=== PATIENT | male | born 1955 | race Caucasian/White ===

== ENCOUNTER 2016-08-28 14:35 | Inpatient (IN) | payer OTHER ==
[~2016-08-28] VITALS: Ht 167.6 cm; Wt 91.5 kg
[2016-08-28 14:37] VITALS: BP 166/97; PULSE 83; RESP 18; O2SAT 97
--- NOTE | 2016-08-28 14:49 | ED.REPORT ---
HPI-General Illness Date of Service Aug 28, 2016 ED Provider: Micah Cantu PAC History of Present Illness: 61yo male sent to ED after labs drawn at PCP showed new onset renal failure (Creatnine 4.0; BUN 40). Pt. reports ongoing nausea for several weeks. Of note, he was on a lengthy hike along [facility] and estimates he hiked 200 miles July 28 - August 15. He denies any fever, muscle cramps, CP, abdominal pain, SOB. Urine normal color, more frequant voiding lately. Nursing Notes Stated Complaint: KIDNEY/SENT BY Chief Complaint: General Complaint Nursing Notes Reviewed: Yes Allergies: Coded Allergies: Penicillins (Verified Allergy, Intermediate, RASH, 08/28/16) Uncoded Allergies: PENICILLIN (Allergy, Intermediate, rash, 08/28/16) General Time Seen by MD: 14:47 Chief Complaint Other abnormal renal function at PCP. Hx Obtained From: Patient Arrived By: Walk-in Onset Occurred: 2 days ago Severity: Current: No pain currently Severity: Maximum: No pain Recent Healthcare: Recent doctor visit Similar Sx Previous: No Past Medical History Past Medical History denies Smoking History Never Smoker Social History Alcohol Use: Denies alcohol use Drug Use: Denies drug use Ambulatory Status Independent Review of Systems Full Review of Systems Constitutional: Denies: Chills, Fever Respiratory: Denies: Shortness of breath Cardiovascular: Denies: Chest pain GI: Reports: Nausea, Denies: Abdominal pain, Hematemesis, Hematochezia, Vomiting Male: Reports Urinary frequency, Denies Dysuria, Denies Flank pain, Denies Hematuria Complete sys rev & neg: except as marked. Physical Exam Vital Signs Vital Signs Date Time Temp Pulse Resp B/P Pulse Ox O2 Delivery O2 Flow Rate FiO2 08/28/16 16:37 36.8 68 20 146/86 99 Room Air 08/28/16 14:37 36.9 83 18 166/97 97 Room Air Initial VS: Reviewed General/Constitutional: Awake, Alert, No acute distress, Well appearing, Well hydrated, Not toxic appearing Neck: Supple, Full range of motion, No adenopathy Respiratory / Chest: Atraumatic, Breath sounds NL, Breath sounds = bilat, No respiratory distress Cardiovascular: Heart rate NL, Regular rhythm, Heart sounds NL Abdomen: Soft, Non-tender, No guarding, No rebound Interpretation & Diagnostics Lab Results Interpretation Result Diagram: 08/28/16 1510 08/28/16 1510 Test 08/28/16 15:10 08/28/16 16:47 White Blood Count 5.6th/mm3 (3.8-10.1) Red Blood Count 3.90mil/mm3 (4.40-5.80) Hemoglobin 11.9g/dL (13.8-17.2) Hematocrit 35.9% (41.0-50.0) Mean Corpuscular Volume 92.1fL (81-100) Mean Corpuscular Hemoglobin 30.5pg (27.0-35.0) Mean Corpuscular Hemoglobin Concent 33.1% (32.0-37.0) Red Cell Distribution Width 12.5% (12.3-15.4) Platelet Count 201bil/L (150-400) Neutrophils (%) (Auto) 63.0% (40-74) Lymphocytes (%) (Auto) 25.5% (14-46) Monocytes (%) (Auto) 7.8% (4-12) Eosinophils (%) (Auto) 3.0% (0-5) Basophils (%) (Auto) 0.5% (0-3) Hold Blue Top Tube Received (Received) Hold Urine Received (Received) Sodium Level 141mEq/L (134-144) Potassium Level 4.1mEq/L (3.5-5.2) Chloride Level 101mEq/L (97-108) Carbon Dioxide Level 26mmol/L (18-29) Blood Urea Nitrogen 29mg/dL (6-24) Creatinine 3.29mg/dL (0.76-1.27) Estimat Glomerular Filtration Rate 21mL/min (>59) Glucose Level 89mg/dL (60-99) Calcium Level 9.8mg/dL (8.5-10.1) Total Bilirubin 0.7mg/dL (0.0-1.2) Aspartate Amino Transf (AST/SGOT) 15U/L (0-50) Alanine Aminotransferase (ALT/SGPT) 12U/L (0-44) Alkaline Phosphatase 62U/L (25-160) Total Creatine Kinase 146U/L (21-232) Total Protein 7.0g/dL (6.4-8.4) Albumin 3.9g/dL (3.4-5.0) Lipase 80U/L (13-60) Hold Zhao Top Tube Received (Received) Urine Color Yellow (YELLOW) Urine Appearance Clear (CLEAR,HAZY) Urine pH 6.5 (5.0-8.0) Urine Specific [place] <1.005 (1.003-1.035) Urine Protein Negativemg/dL (NEG,TRACE) Urine Glucose (UA) Negativemg/dL (NEGATIVE) Urine Ketones Negativemg/dL (NEGATIVE) Urine Occult Blood Negative (NEGATIVE) Urine Nitrite Negative (NEGATIVE) Urine Bilirubin Negative (NEGATIVE) Urine Urobilinogen Normalmg/dL (NORMAL) Urine Leukocyte Esterase Negative (NEGATIVE) Urine RBC 0-2/hpf (0-2) Urine WBC 0-5/hpf (0-5) Urine Epithelial Cells Few/hpf (NONE-MOD) Urine Crystals None seen (NONE SEEN) Urine Bacteria Few/hpf (NONE-FEW) Urine Hyaline Casts None/lpf (NONE) Urine Granular Casts None seen (NONE SEEN) Urine Waxy Casts None seen (NONE SEEN) Urine Red Blood Cell Casts None seen (NONE SEEN) Urine White Blood Cell Casts None seen (NONE SEEN) Urine Mucus None seen (None Seen) Urine Trichomonas None seen (NONE SEEN) Urine Yeast None (NONE SEEN) Urinalysis Comment None Urine Culture Reflexed Not indicated Re-Eval/Medical Decision Med Decision/Clinical Course Case discussed with Dr. Bridges who advises nephrology consult and admission. Dr. Ritter, software solutions architect humanities and languages professor contacted and is happy to consult. Dr. Vazquez, hospitalist, accepted to his service. Counseled Regarding: Diagnosis, Lab results, Need for admission Discharge & Departure Primary Impression: Acute renal failure Acute renal failure type: unspecified Qualified Code: N17.9 - Acute kidney failure, unspecified Disposition: ADMITTED TO HOSPITAL Referrals: Gertrude Crews PA-C (PCP) EDSupervising Provider for APC: Cb Bridges MD, Christopher R PAC Aug 28, 2016 14:49
[2016-08-28] MEDS ORDERED: Ondansetron 2 mg/mL 2 mL Inj IVPUSH ONE (15:00)
[2016-08-28] MEDS: 0.9% Sodium Chloride 1,000 ML IV SCH ×2 (15:26→21:35)
[2016-08-28 15:31] LABS: BASOPHILS % (AUTO) 0.5 % (0-3); MONOCYTES % (AUTO) 7.8 % (4-12); Mean Corpuscular Hemoglobin 30.5 pg (27.0-35.0); Mean Corpuscular Volume 92.1 fL (81-100); Platelet Count 201 bil/L (150-400)
[2016-08-28 16:37] VITALS: BP 146/86; PULSE 68; RESP 20; O2SAT 99
[2016-08-28 17:00] LABS: APPEARANCE,URINE CLEAR (CLEAR,HAZY); COLOR,URINE YELLOW (YELLOW); OCCULT BLOOD,URINE NEGATIVE (NEGATIVE); PH,URINE 6.5 (5.0-8.0); UROBILINOGEN,URINE NORMAL (NORMAL)
[2016-08-28] MEDS ORDERED: 0.9% Sodium Chloride 1,000 ML IV SCH (18:00)
[2016-08-28] MEDS ORDERED: Ondansetron 2 mg/mL 2 mL Inj IVPUSH PRN (18:00)
[2016-08-28] MEDS ORDERED: Alum-Mag Hydrox-Simeth 30 mL Suspension PO PRN (18:00)
[2016-08-28] MEDS ORDERED: Polyethylene Glycol (PEG) 17 Gm Powder PO PRN (18:00)
--- NOTE | 2016-08-28 18:52 | PCM.HPMED ---
Subjective Date of Service Aug 28, 2016 Primary Provider: Admitting Physician: Primary Care Physician: Gertrude Crews PA-C Attending Physician: Chief Complaint: Nausea History of Present Illness: Patient is a 61-year-old male presenting on referral from cured meats supervisor's office after he was seen earlier today for elevated renal function. He had been seen 2 days prior for persistent nausea in addition to hip pain by primary care physician who had noted significantly elevated renal functions with routine lab work to workup nausea of unknown origin, which prompted referral to Dr. Ferrell. A few weeks prior patient and had initiated a high of the [employer] [place]. Patient notes only a couple days in began to experience worsening nausea, which caused him to eat and drink less than he would have liked, in addition to a progressive hip pain. He ended up checking on for 19 days before finally quitting the attempt and flying home to see the doctor the next day, which was 2 days prior. He had blood work drawn then which eventually noted to renal failure prompting his ventral presentation to emergency department. Currently he notes still experiencing is small amount of nausea but overall greatly improved. He has no significant medical history, and no other acute complaints at this time he had no time experienced chest pain shortness of breath. Denies any recent fever chills or sweats. States his stools may have been slightly loose but no copious diarrhea. He does note he does not tolerate heat well and temperature [place] in the beginning of trail was very high, he wonders what role that may have played. Otherwise, he is already feeling somewhat improved related to both nausea and hip pain. Review of Systems: A 10 point review of systems was conducted and entirely negative excepting pertinent positives and negatives included above in history of present illness Allergies Coded Allergies: Penicillins (Verified Allergy, Intermediate, RASH, 08/28/16) Uncoded Allergies: PENICILLIN (Allergy, Intermediate, rash, 08/28/16) Home Medications None PMH No significant past medical history Surgical History Appendectomy in Ankle repair following fracture Family History Mother has hypertension, father has diabetes, no history of renal disease. Social History Hx Alcohol Use: No Hx Substance Use: No Hx Tobacco Use: No Living Arrangement: with Family Exam Vital Signs Vital Sign - Last Date Time Temp Pulse Resp B/P Pulse Ox O2 Delivery O2 Flow Rate FiO2 08/28/16 16:37 36.8 68 20 146/86 99 Room Air General: Alert, Oriented X3, Cooperative, No Acute Distress Eyes: PERRLA, EOMI Mouth: Mucous Membr Moist/[place] Chest & Lungs: Clear to auscultation & percussion Cardiovascular: Regular Rate/Rhythm, No Murmurs/Rubs/Gallops Abdomen: Non-tender, Non-distended Extremities: No cyanosis/clubbing/edma bilat Neurological: Grossly Neurologically Intact Lab and Diagnostics Result Diagram: 08/28/16 1510 08/28/16 1510 Assessment & Plan 61-year-old male who is in the p.m. past medical history presenting on referral from nephrologists office following markedly elevated renal function tests. 1. Acute renal failure - Etiology is not clear however patient's continued hiking even in the face of nausea, and dehydration, may have contributed to his decompensation. Possibilities include rhabdomyolysis, worsened got an infectious process, leading to acute tubular necrosis. Condition does appear to be improving based on declining creatinine values over the past 2 days, and based on patient's overall stable medical condition - We will avoid nephrotoxic agents the patient denies use of any recent past, aside from some nutritional supplements most notably sparely 9 coenzyme Q which may have contributed in part to patient's renal compromise especially in the setting of dehydration. - We will continue intravenous fluids 100 mL per hour - Continue to monitor renal function closely - Nephrology has been consulted and appreciate their recommendations. - Renal ultrasound for further evaluation of anatomy is ordered and pending. 2. Right hip pain - Given location on lateral aspect of hip, pain appears most consistent with bursitis likely due to excessive use during high - Patient is currently well controlled, medications available for exacerbation 3. Nausea - This is also greatly improved from previous week - She is tolerating by mouth food and fluids well and when necessary's are also available should nausea worsen. Given severity of renal disease and also new diagnosis. He will be here greater than 2 nights and thus intermittent inpatient admission. Pain Evaluation: Adequate Pain Control Resuscitation Status: CPR: Attempt Resuscitation Time spent 50 minutes Ming Aiken DO Aug 28, 2016 18:52
--- NOTE | 2016-08-28 19:49 | DRSVH ---
PROCEDURE: US RENAL SONOGRAM INDICATIONS: renal failure TECHNIQUE: Real-time scanning was performed of the kidneys and bladder, with image documentation. COMPARISON: None. FINDINGS: Kidneys: Kidneys are normal in size. Right kidney measures 12.5 cm long; left kidney measures 13.3 cm long. Right renal cortical thickness is 2.3 cm; left renal cortical thickness is 2.1 cm. Renal c ortical echotexture is normal. No hydronephrosis or nephrolithiasis. No suspicious solid mass lesio ns. Bladder: Pre-void bladder volume is 118 mL. Post-void residual is 152 mL. Pre-void images demonstr ate no intraluminal masses or stones. On pre-void images, neither ureteral jets are noted with color Doppler interrogation. (Of note, ureteral jets may not be detectable in up to 25% of cases due to i nsufficient differences in specific gravity between ureteral and bladder urine). Miscellaneous: No free pelvic fluid. IMPRESSION: The patient was unable to void on request, and the "postvoid" bladder volume reflects in creased accumulation of urine within the bladder lumen over the course of the study. No hydronephros is or nephrolithiasis is found. Dictated by: Julian Patino M.D. on 08/28/2016 at 19:46 Approved by: Julian Patino M.D. on 08/28/2016 at 19:47
[2016-08-28 20:44] VITALS: BP 165/94; PULSE 69; RESP 16; O2SAT 97
[2016-08-28 22:57] VITALS: BP 148/94; PULSE 69; RESP 16; O2SAT 97
[2016-08-29 04:04] VITALS: BP 159/97; PULSE 62; RESP 16; O2SAT 97
--- NOTE | 2016-08-29 04:15 | NUR ---
Admit note Pt. arrived to the floor approx. 2200, A&Ox4, calm, pleasant and cooperative to staff and care, able to transfer to bed, independent with ambulation, steady gait, oriented to rm and call light, denies nausea and stated of 1/10 right hip pain, vitals stable, afebrile, hourly checks, call light in reach at all times, slept most of the shift, will continue to monitor.
[2016-08-29 06:19] LABS: BASOPHILS % (AUTO) 0.6 % (0-3); EOSINOPHILS % (AUTO) 5.4 % (0-5); MONOCYTES % (AUTO) 7.9 % (4-12); Mean Corpuscular Hemoglobin 30.6 pg (27.0-35.0); Mean Corpuscular Volume 93.2 fL (81-100); NEUTROPHILS % (AUTO) 55.3 % (40-74); Platelet Count 176 bil/L (150-400)
--- NOTE | 2016-08-29 09:21 | NUR ---
Social Work-screening: Data:EMR Reviewed. PT is a 61 y/o male who was admitted on 08/28/16 for new onset renal failure per H&P. Pt's insurance is [employer] and PCP is FOSTER Fuchs. EMR Reviewed. SW met with pt at bedside, SW role explained. Pt is alert and oriented x3. Pt resides at home with his on [address] where he remains independent with ADLs. Pt drives and does not use any DME. Pt has no HH Or SNF history. Pt confirms he has completed DPOA/ advanced directive paperwork, SW encouraged a copy to be brought into the hospital. Per RN notes, pt has been up independent in his room. Pt's to provide transport home at discharge. SW provided phone number and plan on white board in room. No anticipated discharge needs. SW will continue to follow if needs arise. Assessment:Pt who is independent at baseline. Plan:Pt to discharge home when medically stable via POV. No anticipated discharge needs. SW will continue to follow if needs arise. Chaya Donato MSW
[2016-08-29 13:57] VITALS: BP 158/96; PULSE 71; RESP 20; O2SAT 97
--- NOTE | 2016-08-29 14:50 | CONS ---
[address] [address] CONSULTATION REPORT PATIENT: NI CANALES : 1955 MR#: [id number] ADMIT: 08/28/2016 JOB ID: [id number] DATE OF SERVICE: 08/29/2016 REQUESTING PHYSICIAN: Dr. Ming Aiken. REASON FOR CONSULTATION: Management of abnormal kidney function. CHIEF COMPLAINT: Abnormal kidney function and nausea. PRESENT ILLNESS: This is a very pleasant, 61-year-old, male without significant past medical history, who presented to the hospital with a complaint of persistent nausea and abnormal kidney function. The patient was hiking along the [employer] [place] a month ago. The hike started on July 28 and ended on August 14. He did a total hike of 200 miles. The location started in [place], [place]. He finished the hike in [place], [place]. The trail started near [facility]. On day two of the hike, he started having right hip pain. Of note, he was carrying 50-pound backpack for the whole time. He was taking ibuprofen, total of three doses, during the hike. The patient reported that day four, he started having nausea and loss of appetite. He did not have any vomiting or diarrhea at that time. He stated that he was sweating a lot. He drank filtered water. Water came from river, tap water and tank. He mentioned that at one point, he drank directly from the tap water in [facility]. That was the only source of water that his daughter did not have. The whole trip he was accompanied by his daughter and his granddaughter, who does not have any symptoms like his. Patient was pushing himself up until August 14 when he decided to fly back home. At home, he started having fever, chills, watery diarrhea. Those symptoms lasted for a few days and went away. However, he remains having persistent nausea and not feeling like himself 100%. He decided to see his practitioner. He had blood work done. Showed a creatinine of 4.5 on August 25, 2016. Two years ago, his serum creatinine was 0.99. He denies history of skin rash. The patient is pretty healthy individual. He has no history of hypertension, heart failure. No stroke, no dyslipidemia, no diabetes. He has no history of vasculitis or kidney stones. Given the elevation of serum creatinine, he was instructed to go to the hospital for further investigation. The initial blood work did not show any leukocytosis. He has mild anemia, hemoglobin of 11.9, eosinophils were 3%. Initial BMP showed sodium 141, potassium of 4.1, chloride 101, bicarb 26, BUN of 29, creatinine of 3.29. Lipase of 80. He has normal liver function test. Urine was benign, did not show any active sediment. The patient received IV fluid overnight. His serum creatinine came down to 3.12. His appetite is fair. He has some nausea but he has no vomiting, no diarrhea, no abdominal pain. No chest pain. No cough. No palpitation, no headaches. No sinus pressure. No skin rash. No history of insect bite. REVIEW OF SYSTEMS: A 14-point review of systems was performed. ALLERGIES: PENICILLIN. MEDICATIONS: None. PAST MEDICAL HISTORY: None. SURGICAL HISTORY: Status post appendectomy, status post ankle fracture status post repair. FAMILY HISTORY: No significant kidney disease in the family. SOCIAL HISTORY: Denies current use of alcohol, tobacco, or illicit drugs. PHYSICAL EXAMINATION: Vitals: Temperature 36.8, pulse 62, respiratory 16, blood pressure 159/97. O2 sat 98% on room air. General appearance: Awake, alert, oriented x3, in no acute distress. HEENT: No pallor, no jaundice. No JVD. No lymphadenopathy. No thyroid enlargement. Atraumatic. Moist mucous membranes. PERRLA. Heart: Regular rhythm. Normal S1, S2. No murmurs, rubs, or gallops. Lungs: Clear to auscultation bilaterally. No wheezing. No rhonchi. Abdomen: Soft, nontender, nondistended. No hepatosplenomegaly. Extremities: No edema, cyanosis or clubbing of fingers. Skin: No rashes. No excoriation. LABORATORIES: Sodium 146, potassium 5.0, chloride 107, bicarb 26, BUN 26, creatinine 3.12. WBC 5.2, hemoglobin 11.3, eosinophils 5.4%. Urine specific gravity less than 1.005, pH 6.5. RBCs 0-2, WBCs 0-5. ASSESSMENT: Acute kidney injury. The etiology is unclear. Patient was hiking along the [employer] [place] between July 28 and August 14. On day four, he started having nausea and lost his appetite. Moreover, he was taking ibuprofen for the hip pain. I believe that he likely had a component of dehydration. Ibuprofen may have contributed to the kidney injury. Since he was at the [facility] border, I was wondering if he might catch atypical infection; for example, [place] spotted fever, parasitic infection, viral infection. Rhabdomyolysis was possible well since he had an extensive hike. All of those possibilities may lead to acute tubular necrosis. When patient returned back home, he started urinating more. It seems to me that he is now in recovery phase of acute tubular necrosis. At this point, I would like to continue only supportive treatment, continue IV fluid. Avoid nephrotoxins. Avoid NSAIDs. I would like to check other labs including ESR, CRP, [place] spotted fever titer, HIV, stool ova/parasite and stool PCR Thank you for allowing me to participate in the care of your patient. We will monitor along with you. SHELBY
--- NOTE | 2016-08-29 15:01 | PCM.PNMED ---
Subjective Date of Service Aug 29, 2016 Subjective Patient is feeling well overnight. He has a good appetite this morning. Urinating frequently. Denies any fever or chills. His experienced no nausea or vomiting since admission. Few complaints at this time. It is not causing significant discomfort, required no pain medication. Exam Vital Signs Vital Sign - Last Date Time Temp Pulse Resp B/P Pulse Ox O2 Delivery O2 Flow Rate FiO2 08/29/16 13:57 36.6 71 20 158/96 97 Room Air Intake and Output 08/28/16 08/28/16 08/29/16 Cumulative From/Thru 15:00 23:00 07:00 08/28/16 14:37 - 08/29/16 06:01 Intake Total 1000 ml 1553 ml 2553 ml Output Total 1250 ml 1250 ml Balance 1000 ml 303 ml 1303 ml Intake Oral 700 ml 700 ml IV Total 1000 ml 853 ml 1853 ml Output Urine Total 1250 ml 1250 ml Exam General: Alert, Oriented X3, Cooperative, No Acute Distress Eyes: PERRLA, EOMI Mouth: Mucous Membranes Moist/[employer] Chest & Lungs: Clear to auscultation & percussion Cardiovascular: Regular Rate/Rhythm, No Murmurs/Rubs/Gallops Abdomen: Non-tender, Non-distended Extremities: No cyanosis/clubbing/edema bilat Neurological: Grossly Neurologically Intact IVs and Medications Medications Reviewed: Medications were reviewed in detail Lab and Diagnostics Result Diagram: 08/29/16 0550 08/29/16 0550 Assessment & Plan 61-year-old male who is in the p.m. past medical history presenting on referral from nephrologists office following markedly elevated renal function tests. 1. Acute renal failure - Etiology is not clear however patient's continued hiking even in the face of nausea, and dehydration, may have contributed to his decompensation. Possibilities include rhabdomyolysis, worsened got an infectious process, leading to acute tubular necrosis. Condition does appear to be improving based on declining creatinine values over the past 2 days, and based on patient's overall stable medical condition - We will avoid nephrotoxic agents the patient denies use of any recent past, aside from some nutritional supplements most notably sparely 9 coenzyme Q which may have contributed in part to patient's renal compromise especially in the setting of dehydration. - We will continue intravenous fluids 100 mL per hour - Continue to monitor renal function closely - Nephrology consultation is appreciated, have ordered additional studies, and agree with current management. - Renal ultrasound unremarkable for acute pathology. - Continue to monitor , anticipate discharge in 1-2 days should patient remain clinically stable and improving renal function be demonstrated. 2. Right hip pain - Given location on lateral aspect of hip, pain appears most consistent with bursitis likely due to excessive use during high - Patient is currently well controlled, medications available for exacerbation 3. Nausea - This is also greatly improved from previous week - He is tolerating by mouth food and fluids well and when necessary's are also available should nausea worsen. Given severity of renal disease and also new diagnosis. He will be here greater than 2 nights and thus intermittent inpatient admission. Pain Evaluation: Adequate Pain Control Resuscitation Status: CPR: Attempt Resuscitation Time spent 25 minutes Ming Aiken DO Aug 29, 2016 15:01
--- NOTE | 2016-08-29 18:43 | NUR ---
Uneventful Pt has been cooperative and pleasant with staff, resting in bed all day, independent in room. Good appetite, appropriate PO intake, pt a/o x 3, denies pain or discomfort. Pt resting in bed with call light within reach, bed low and locked, intentional rounding.
[2016-08-29 19:36] VITALS: BP 163/95; PULSE 63; RESP 18; O2SAT 97
[2016-08-29 23:54] VITALS: BP 145/88; PULSE 70; RESP 18; O2SAT 98
[2016-08-30 04:11] VITALS: BP 166/98; PULSE 59; RESP 18; O2SAT 97
[2016-08-30 06:30] LABS: BASOPHILS % (AUTO) 0.7 % (0-3); EOSINOPHILS % (AUTO) 6.1 % (0-5); MONOCYTES % (AUTO) 7.9 % (4-12); Mean Corpuscular Hemoglobin 30.8 pg (27.0-35.0); Mean Corpuscular Volume 89.5 fL (81-100); NEUTROPHILS % (AUTO) 55.1 % (40-74); Platelet Count 168 bil/L (150-400)
--- NOTE | 2016-08-30 06:34 | NUR ---
Shift note Very pleasant gentleman. Resting comfortably overnight and sleeping intermittently. Uses call light appropriately, no c/o pain, nausea, SOB. Independent in room with steady gait.
--- NOTE | 2016-08-30 10:50 | NUR ---
Social Work-readiness for discharge: Data:EMR Reviewed. Pt is on day 2 of hospitalization for new onset renal failure per H&P. Pt is likely medically stable later today or tomorrow. Nephrology to see pt today. Pt has been up independent in his room. No anticipated discharge needs. SW will continue to follow if needs arise. Assessment:pt who is independent at baseline. Plan:Pt to discharge home when medically stable via POV. No anticipated discharge needs. SW will continue to follow if needs arise. ELIDA Barber
[2016-08-30 13:25] VITALS: BP 170/101; PULSE 65; RESP 18; O2SAT 97
--- NOTE | 2016-08-30 13:44 | NUR ---
BP Pt BP 170/101 HR 65, asymptomatic, notified and will discuss with pt.
--- NOTE | 2016-08-30 14:17 | PCM.DC.MED ---
Discharge Summary Date of Service Aug 30, 2016 Dates of Hospitalization Date of Hospital Admission Aug 28, 2016 at 19:24 Date of Discharge: Aug 30, 2016 Providers: Admitting Physician: Ming Aiken DO Primary Care Physician: Gertrude Crews PA-C Attending Physician: Ming Aiken DO Diagnosis at Time of Discharge Diagnosis at Time of Discharge 1. Acute renal failure; improving. 2. Hypertension, stable. Consultations Nephrology, Dr Ritter. Procedures Other Diagnostics Date of Service: 08/28/16 185 PROCEDURE: US RENAL SONOGRAM INDICATIONS: renal failure TECHNIQUE: Real-time scanning was performed of the kidneys and bladder, with image documentation. COMPARISON: None. FINDINGS: Kidneys: Kidneys are normal in size. Right kidney measures 12.5 cm long; left kidney measures 13.3 cm long. Right renal cortical thickness is 2.3 cm; left renal cortical thickness is 2.1 cm. Renal cortical echotexture is normal. No hydronephrosis or nephrolithiasis. No suspicious solid mass lesions. Bladder: Pre-void bladder volume is 118 mL. Post-void residual is 152 mL. Pre -void images demonstrate no intraluminal masses or stones. On pre-void images, neither ureteral jets are noted with color Doppler interrogation. (Of note, ureteral jets may not be detectable in up to 25% of cases due to insufficient differences in specific gravity between ureteral and bladder urine). Miscellaneous: No free pelvic fluid. IMPRESSION: The patient was unable to void on request, and the "postvoid" bladder volume reflects increased accumulation of urine within the bladder lumen over the course of the study. No hydronephrosis or nephrolithiasis is found. Dictated by: Julian Patino M.D. 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 He had been seen 2 days prior for persistent nausea in addition to hip pain by primary care physician who had noted significantly elevated renal functions with routine lab work to workup nausea of unknown origin, which prompted referral to Dr. Ferrell. A few weeks prior patient and had initiated a [place] of the [employer] [place]. Patient notes only a couple days in began to experience worsening nausea, which caused him to eat and drink less than he would have liked, in addition to a progressive hip pain. He ended up checking on for 19 days before finally quitting the attempt and flying home to see the doctor the next day, which was 2 days prior. He had blood work drawn then which eventually noted to renal failure prompting his ventral presentation to emergency department. Currently he notes still experiencing is small amount of nausea but overall greatly improved. He has no significant medical history, and no other acute complaints at this time he had no time experienced chest pain shortness of breath. Denies any recent fever chills or sweats. States his stools may have been slightly loose but no copious diarrhea. He does note he does not tolerate heat well and temperature [place] in the beginning of trail was very high, he wonders what role that may have played. Otherwise, he is already feeling somewhat improved related to both nausea and hip pain. Hospital Course Hospital course as detailed below: 1. Acute renal failure - Etiology is not clear however patient's continued hiking even in the face of nausea, and dehydration, may have contributed to his decompensation. Possibilities include rhabdomyolysis, worsened got an infectious process, leading to acute tubular necrosis. Condition does appear to be improving based on declining creatinine values over the past 2 days, and based on patient's overall stable medical condition - We avoided nephrotoxic agents the patient denies use of any recent past, aside from some nutritional supplements most notably sparely 9 coenzyme Q which may have contributed in part to patient's renal compromise especially in the setting of dehydration. - We continued intravenous fluids 100 mL per hour through hospital stay. - Continue to monitor renal function closely, values continued to be downward trending through hospitalization. BUN/Cr on discharge was: 28/2.8 - Renal ultrasound unremarkable for acute pathology. - With clearance by Nephrology pt was discharged home. Encouraged to continue to hydrate aggressively, at least 8-10glasses water /day - FU to be scheduled in 2-3 days for FU BMP to continue to trend renal function. 2. Hypertension: - Present on admission, seemed to worsen with hydration - It is unclear what patient's baseline is, in the setting of renal failure with aggressive IV hydration, this may not be a chronic condition. - As pt was otherwise asymptomatic, plan to defer consideration of medication intervention . FU scheduled in 2-3 days with PCP for BP check and further management accordingly. 3. Right hip pain - Given location on lateral aspect of hip, pain appears most consistent with bursitis likely due to excessive use during high - Patient is currently well controlled, medications available for exacerbation - Previous X-ray studies did not demonstrate evidence of omar pathology. Exam Vital Signs (Last) Date Time Temp Pulse Resp B/P Pulse Ox O2 Delivery O2 Flow Rate FiO2 08/30/16 13:25 36.6 65 18 170/101 97 Room Air Exam General: Alert, Oriented X3, Cooperative, No Acute Distress Eyes: PERRLA, EOMI Mouth: Mucous Membranes Moist/[place] Extremities: No cyanosis/clubbing/edema bilat Neurological: Grossly Neurologically Intact Test 08/28/16 15:10 08/28/16 16:47 08/29/16 05:50 08/30/16 06:00 Hold Blue Top Tube Received (Received) Hold Urine Received (Received) Total Creatine Kinase 146U/L (21-232) Lipase 80U/L (13-60) Hold Zhao Top Tube Received (Received) Urine Color Yellow (YELLOW) Urine Appearance Clear (CLEAR,HAZY) Urine pH 6.5 (5.0-8.0) Urine Specific Sulphur <1.005 (1.003-1.035) Urine Protein Negativemg/dL (NEG,TRACE) Urine Glucose (UA) Negativemg/dL (NEGATIVE) Urine Ketones Negativemg/dL (NEGATIVE) Urine Occult Blood Negative (NEGATIVE) Urine Nitrite Negative (NEGATIVE) Urine Bilirubin Negative (NEGATIVE) Urine Urobilinogen Normalmg/dL (NORMAL) Urine Leukocyte Esterase Negative (NEGATIVE) Urine RBC 0-2/hpf (0-2) Urine WBC 0-5/hpf (0-5) Urine Epithelial Cells Few/hpf (NONE-MOD) Urine Crystals None seen (NONE SEEN) Urine Bacteria Few/hpf (NONE-FEW) Urine Hyaline Casts None/lpf (NONE) Urine Granular Casts None seen (NONE SEEN) Urine Waxy Casts None seen (NONE SEEN) Urine Red Blood Cell Casts None seen (NONE SEEN) Urine White Blood Cell Casts None seen (NONE SEEN) Urine Mucus None seen (None Seen) Urine Trichomonas None seen (NONE SEEN) Urine Yeast None (NONE SEEN) Urinalysis Comment None Urine Culture Reflexed Not indicated Erythrocyte Sedimentation Rate 22mm/hr (0-30) C-Reactive Protein 0.1mg/dL (0.0-0.5) White Blood Count 5.6th/mm3 (3.8-10.1) Red Blood Count 3.80mil/mm3 (4.40-5.80) Hemoglobin 11.7g/dL (13.8-17.2) Hematocrit 34.0% (41.0-50.0) Mean Corpuscular Volume 89.5fL (81-100) Mean Corpuscular Hemoglobin 30.8pg (27.0-35.0) Mean Corpuscular Hemoglobin Concent 34.4% (32.0-37.0) Red Cell Distribution Width 12.6% (12.3-15.4) Platelet Count 168bil/L (150-400) Neutrophils (%) (Auto) 55.1% (40-74) Lymphocytes (%) (Auto) 30.2% (14-46) Monocytes (%) (Auto) 7.9% (4-12) Eosinophils (%) (Auto) 6.1% (0-5) Basophils (%) (Auto) 0.7% (0-3) Sodium Level 141mEq/L (134-144) Potassium Level 4.6mEq/L (3.5-5.2) Chloride Level 103mEq/L (97-108) Carbon Dioxide Level 22mmol/L (18-29) Blood Urea Nitrogen 28mg/dL (6-24) Creatinine 2.87mg/dL (0.76-1.27) Estimat Glomerular Filtration Rate 24mL/min (>59) Glucose Level 87mg/dL (60-99) Calcium Level 9.1mg/dL (8.5-10.1) Total Bilirubin 0.9mg/dL (0.0-1.2) Aspartate Amino Transf (AST/SGOT) 12U/L (0-50) Alanine Aminotransferase (ALT/SGPT) 9U/L (0-44) Alkaline Phosphatase 57U/L (25-160) Total Protein 6.1g/dL (6.4-8.4) Albumin 3.7g/dL (3.4-5.0) Followup Plan Disposition: Home with Discharge Diet: No restrictions, Low fat, Low Sodium Discharge Activity: No restrictions Time spent 45 minutes copies to: Gertrude Crews PA-C, Benjamin P DO Aug 30, 2016 14:17
--- NOTE | 2016-08-30 14:20 | PCM.DIMED ---
Discharge Instructions Date of Service Aug 30, 2016 Dates of Hospitalization Aug 28, 2016 at 19:24 Discharge Diagnosis Discharge Diagnosis 1. Acute renal failure; improving. 2. Hypertension, stable. Diet Discharge Diet: No restrictions, Low fat, Low Sodium Activity Discharge Activity: No restrictions Call your provider Call your provider for: Shortness of breath, Other (Headache) Patient Instructions Patient Instructions Follow up with PCP, Gertrude Crews in 2-3 days for follow up studies of renal function and blood pressure check Follow-up Provider: Gertrude Crews PA-C Follow-up with PCP in: Other (2-3 days.) Ming Aiken DO Aug 30, 2016 14:20
--- NOTE | 2016-08-30 14:28 | PCM.PNNEPH ---
Subjective Date of Service Aug 30, 2016 Subjective Feeling better, no longer has nausea, appetite is normal. He has no fever/chills/diarrhea. Serum cr 2.8. Exam Vital Signs Vital Sign - Last Date Time Temp Pulse Resp B/P Pulse Ox O2 Delivery O2 Flow Rate FiO2 08/30/16 13:25 36.6 65 18 170/101 97 Room Air Intake and Output 08/29/16 08/29/16 08/30/16 Cumulative From/Thru 15:00 23:00 07:00 08/28/16 14:37 - 08/30/16 06:32 Intake Total 2346 ml 1782 ml 6681 ml Output Total 400 ml 2000 ml 1600 ml 5250 ml Balance -400 ml 346 ml 182 ml 1431 ml Intake Oral 1200 ml 550 ml 2450 ml IV Total 1146 ml 1232 ml 4231 ml Output Urine Total 400 ml 2000 ml 1600 ml 5250 ml Exam General appearance: Awake, alert, oriented x3, in no acute distress. HEENT: No pallor, no jaundice. No JVD. No lymphadenopathy. No thyroid enlargement. Atraumatic. Moist mucous membranes. PERRLA. Heart: Regular rhythm. Normal S1, S2. No murmurs, rubs, or gallops. Lungs: Clear to auscultation bilaterally. No wheezing. No rhonchi. Abdomen: Soft, nontender, nondistended. No hepatosplenomegaly. Extremities: No edema, cyanosis or clubbing of fingers. Skin: No rashes. No excoriation. Lab and Diagnostics Result Diagram: 08/30/16 0600 08/30/16 0600 Additional Diagnostics Date of Service: 08/28/16 395 PROCEDURE: US RENAL SONOGRAM INDICATIONS: renal failure TECHNIQUE: Real-time scanning was performed of the kidneys and bladder, with image documentation. COMPARISON: None. FINDINGS: Kidneys: Kidneys are normal in size. Right kidney measures 12.5 cm long; left kidney measures 13.3 cm long. Right renal cortical thickness is 2.3 cm; left renal cortical thickness is 2.1 cm. Renal cortical echotexture is normal. No hydronephrosis or nephrolithiasis. No suspicious solid mass lesions. Bladder: Pre-void bladder volume is 118 mL. Post-void residual is 152 mL. Pre -void images demonstrate no intraluminal masses or stones. On pre-void images, neither ureteral jets are noted with color Doppler interrogation. (Of note, ureteral jets may not be detectable in up to 25% of cases due to insufficient differences in specific gravity between ureteral and bladder urine). Miscellaneous: No free pelvic fluid. IMPRESSION: The patient was unable to void on request, and the "postvoid" bladder volume reflects increased accumulation of urine within the bladder lumen over the course of the study. No hydronephrosis or nephrolithiasis is found. Dictated by: Julian Patino M.D. on 08/28/2016 at 19:46 Plan Impression ASSESSMENT: 1. Acute kidney injury. DDx: - Prolonged prerenal azotemia causing ATN. - Rhabdomyolysis. - NSAIDs induced. - Infectious process leading to ATN. RMSF serologies and stool PCR sent. 2. Elevated blood pressure Plan: Per renal standpoint, he can be d/c'd home. Repeat BMP on Wednesday09/02/16. F/u on 09/03/16. Will monitor his BP as OP, may require antihypertensive meds. Stay hydrated, drink at least 70-80 oz per day. Will sign off, please do not hesitate to call back with any question or concern. Thank you for allowing me to participate in the care of your patient. King Dai MD Aug 30, 2016 14:28
--- NOTE | 2016-08-30 14:42 | NUR ---
Social Work- discharge: Data:EMR Reviewed. Pt is on day 2 of hospitalization for new onset renal failure per H&P. Pt is medically stable today. Nephrology has signed off on pt. Pt has been up independent in his room. No anticipated discharge needs. All updated and agreeable to plan. Assessment:pt who is independent at baseline. Plan:Pt to discharge home today via POV. No anticipated discharge needs. All updated and agreeable to plan. ELIDA Barber
--- NOTE | 2016-08-30 15:22 | NUR ---
Discharge Pt discharged home with via private vehicle. Pt verbalized understanding of discharge and follow up instructions, personal belongings accounted for and left with pt.
== END 2016-08-30 15:23 | disposition home or self-care (01) | DRG 684 ==
LOC: SED 14:35 → MPC 19:24 → OBSVTOIN 19:24
PROVIDERS: ADMIT Family Medicine; ATTEND Family Medicine
DX: N17.9 Acute kidney failure, unspecified (principal); I10 Essential (primary) hypertension; E86.0 Dehydration; M25.551 Pain in right hip; Z88.0 Allergy status to penicillin